=== PATIENT | male | born 1960 | race Caucasian/White ===

== ENCOUNTER 2017-11-13 01:30 | Emergency (ER) | payer OTHER ==
[2017-11-13 01:48] VITALS: BP 145/87; PULSE 92; RESP 16; TEMP 98.5; O2SAT 95
[2017-11-13] MEDS ORDERED: ADDE10 PO (01:58)
[2017-11-13] MEDS ORDERED: LEXA10TA PO (01:58)
[2017-11-13] MEDS ORDERED: HYDR-3583 PO (01:58)
[2017-11-13] MEDS ORDERED: TETANUS/DIPHTHERIA TOXOID ADULT 0.5 ML VIAL IM ONE (02:00)
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
[2017-11-13] MEDS ORDERED: AMOXICILLIN/CLAVULANATE K 875 MG TAB PO ONE (02:30)
[2017-11-13] MEDS ORDERED: AUGM875T3 PO (02:30)
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
== END 2017-11-13 03:23 | disposition home or self-care (01) ==
LOC: NEPD 01:30
DX: S61.452A Open bite of left hand, initial encounter (principal); Y04.1XXA Assault by human bite, initial encounter; S00.83XA Contusion of other part of head, initial encounter; S90.31XA Contusion of right foot, initial encounter; R51 Headache; M54.2 Cervicalgia; Z23 Encounter for immunization; Y33.XXXA Other specified events, undetermined intent, initial encounter; Y92.488 Other paved roadways as the place of occurrence of the external cause
CPT/HCPCS: 70450; 70486; 72125; 73130; 73630; 90471; 90714